=== PATIENT | female | born 1995 | race Caucasian/White ===

== ENCOUNTER 2017-06-15 04:58 | Emergency (ER) | payer OTHER ==
[~2017-06-15] VITALS: Ht 170.2 cm; Wt 42.4 kg
[2017-06-15 05:42] VITALS: BP 134/90
[2017-06-16] MEDS ORDERED: AMOXICILLIN500 MG PO (03:27)
[2017-06-16] MEDS ORDERED: MOTRIN600 MG PO (03:27)
== END 2017-06-15 05:43 | disposition home or self-care (01) ==
LOC: EME 04:58
PROC: 0HQFXZZ Repair Right Hand Skin, External Approach (ICD-10-PCS; principal; 2017-06-15)
DX: S61.210A Laceration without foreign body of right index finger without damage to nail, initial encounter (principal); W45.8XXA Other foreign body or object entering through skin, initial encounter; F17.200 Nicotine dependence, unspecified, uncomplicated
CPT/HCPCS: 99281; 99284; S0020

== ENCOUNTER 2017-06-16 01:37 | Emergency (ER) | payer OTHER ==
[~2017-06-16] VITALS: Ht 170.2 cm; Wt 44.6 kg
[2017-06-16] MEDS ORDERED: AMOXICILLIN500 MG PO (03:27)
[2017-06-16] MEDS ORDERED: MOTRIN600 MG PO (03:27)
[2017-06-16 03:49] VITALS: BP 131/95
== END 2017-06-16 03:51 | disposition home or self-care (01) ==
LOC: EME 01:37
DX: K08.89 Other specified disorders of teeth and supporting structures (principal); S00.12XA Contusion of left eyelid and periocular area, initial encounter; M25.561 Pain in right knee; W10.9XXA Fall (on) (from) unspecified stairs and steps, initial encounter; F17.200 Nicotine dependence, unspecified, uncomplicated
CPT/HCPCS: 70480; 73564; 99281; 99284

== ENCOUNTER → 2017-10-04 | Emergency (ER) | payer OTHER ==
[~2017-10-04] VITALS: Ht 167.6 cm; Wt 47.8 kg
[~2017-10-04] MED LIST: AMOXICILLIN500 MG PO; FLEXERIL10 MG PO; KEFLEX500 MG PO; MOTRIN600 MG PO
[2017-10-04 18:22] LABS: ADD MIUA? YES; BILIRUBIN NEGATIVE; BLOOD NEGATIVE; COLOR YELLOW ((YELLOW)); GLUCOSE (STRIP) NEGATIVE; KETONES NEGATIVE; LEUKOCYTES SMALL; NITRITE POSITIVE; PROTEIN (STRIP) 30
[2017-10-04 18:29] LABS: BACTERIA RARE /HPF; EPITHELIAL CELLS 1+ /HPF; MUCUS TRACE /LPF; RED BLOOD CELLS 0-5 /HPF (0-5); WHITE BLOOD CELLS 30-40 /HPF (0-5)
[2017-10-04 18:32] LABS: INTERNAL CONTROL VALID? YES
[2017-10-04 19:12] VITALS: BP 137/70
== END | disposition home or self-care (01) ==
LOC: EME 16:20
PROVIDERS: Nurse Practitioner Family
DX: S16.1XXA Strain of muscle, fascia and tendon at neck level, initial encounter (principal); S80.10XA Contusion of unspecified lower leg, initial encounter; M25.561 Pain in right knee; M25.562 Pain in left knee; V49.50XA Passenger injured in collision with unspecified motor vehicles in traffic accident, initial encounter; Y92.410 Unspecified street and highway as the place of occurrence of the external cause; N39.0 Urinary tract infection, site not specified; G56.32 Lesion of radial nerve, left upper limb; F17.200 Nicotine dependence, unspecified, uncomplicated
CPT/HCPCS: 71020; 73564; 81003; 84703; 99281; 99284